=== PATIENT | male | born 1955 | race Two or more races ===

== ENCOUNTER 2017-12-02 08:21 | Emergency (ER) | payer BC ==
[2017-12-02 08:30] VITALS: BP 144/86
[2017-12-02] MEDS ORDERED: Fluorescein Sod TOPICAL 0.6* 0.6 MG TEST OPHTHALMIC ONE (08:35)
[2017-12-02] MEDS ORDERED: BSS OPTH.SOL* BTL ONE (08:35)
[2017-12-02] MEDS ORDERED: Tetracaine 0.5% OPTH.SOL 4 ML* 1 DROP BTL ONE (08:35)
[2017-12-02] MEDS ORDERED: Ciprofloxacin 0.3% OPTH.SOL* 2.5 ML BTL RIGHT EYE ONE (08:45)
[2017-12-02] MEDS ORDERED: Ibuprofen TAB* 400 MG PO ONE (08:46)
--- NOTE | 2017-12-02 13:39 | UC ---
Vamshi Crouch Thomas, scribed for Shubham Thompson MD on 12/02/17 at 0841 . Eye Complaint HPI - HPI Summary HPI Summary: The patient is a 62 year old male complaining of right eye pain that began this morning when he woke up. He thinks that he scratched his eye last night. The pain is rated 4/10. He does note increased lacrimation. He denies decreased vision. There are not any other complaints. - History of Current Complaint Chief Complaint: UCEye Stated Complaint: EYE COMPLAINT Time Seen by Provider: 12/02/17 08:25 Hx Obtained From: Patient Onset/Duration: Lasting Hours, Still Present Timing: Constant Severity Currently: Severe Pain Intensity: 8 Pain Scale Used: 0-10 Numeric Alleviating Factor(s): Nothing Associated Signs And Symptoms: Negative: Vision Impairment Right, Vision Impairment Left - Allergies/Home Medications Allergies/Adverse Reactions: Allergies Allergy/AdvReac Type Severity Reaction Status Date / Time Sulfa (Sulfonamide Allergy See Comment Verified 12/02/17 08:31 Antibiotics) Home Medications: Home Medications Amlodipine Besylate [Norvasc 5 mg tab] 5 mg PO DAILY 12/02/17 [History Confirmed 12/02/17] Lisinopril/HCTZ 20/12.5(NF) [Zestoretic 20/12.5(NF)] 1 tab PO DAILY 12/02/17 [ History Confirmed 12/02/17] Omeprazole 20 mg PO 12/02/17 [History] Rosuvastatin Calcium 20 mg PO 12/02/17 [History] PMH/Surg Hx/FS Hx/Imm Hx Previously Healthy: No - HTN, HLD; NEGATIVE: blindness - Surgical History Surgical History: None - Family History Known Family History: Positive: Other - Per EMR, patient denies a relevant FHx - Social History Alcohol Use: Daily Substance Use Type: None Smoking Status (MU): Never Smoked Tobacco Review of Systems Constitutional: Negative - fever Eyes: Other - Right eye pain, increased lacrimation Is Patient Immunocompromised?: No All Other Systems Reviewed And Are Negative: Yes Physical Exam - Summary Physical Exam Summary: VITAL SIGNS: Reviewed. GENERAL: Patient is a well-developed and nourished male who is lying comfortable in the stretcher. Patient is not in any acute respiratory distress. HEAD AND FACE: Normocephalic EYES: PERRLA, EOMI x 2. When I examined his eye, there is not a foreign body. I did a fluorescein test, and there is positive reuptake at 10 o'clock. EARS: Hearing grossly intact. MOUTH: Oropharynx within normal limits. NECK: Supple, trachea is midline, no adenopathy, no JVD, no carotid bruit. CHEST: Symmetric, no tenderness at palpation LUNGS: Clear to auscultation bilaterally. No wheezing or crackles. CVS: Regular rate and rhythm, S1 and S2 present, no murmurs or gallops appreciated. ABDOMEN: Soft, non-tender. Bowel sounds are normal. No abdominal abnormal pulsations. EXTREMITIES: Full ROM in all major joints, no edema, no cyanosis or clubbing. NEURO: Alert and oriented x 3. No acute neurological deficits. Speech is normal and follows commands. SKIN: Dry and warm Triage Information Reviewed: Yes Vital Signs: Initial Vital Signs Temp 98.8 F 12/02/17 08:27 Pulse 88 12/02/17 08:27 Resp 18 12/02/17 08:27 BP 144/86 12/02/17 08:27 Pulse Ox 99 12/02/17 08:27 Vital Signs Reviewed: Yes Eye Complaint Course/Dx - Course Course Of Treatment: The patient is a 62 year old male complaining of right eye pain that began this morning when he woke up. He thinks that he scratched his eye last night. He does note increased lacrimation. He denies decreased vision. There are not any other complaints. When I examined his eye, there is not a foreign body. I did a fluorescein test, and there is positive reuptake at 10 o' clock. He will be placed on antibiotics and will follow up with ophthalmology in two days. The patient was found to have increased BP in UC. The patient will follow up with PCP for better control of BP. I discussed all the findings with the patient. Patient was instructed to return to the urgent care or go to ER immediately if any of the symptoms return or worsen. Plan of care was discussed with the patient, and patient understands and agrees. All questions were answered to patient satisfaction. There were no further complaints or concerns. - Differential Dx/Diagnosis Provider Diagnoses: Corneal abrasion Discharge - Sign-Out/Discharge Documenting (check all that apply): Discharge - Discharge Plan Condition: Stable Disposition: HOME Patient Education Materials: Corneal Abrasion (ED) Referrals: Du Callejas MD [Medical Doctor] - 2 Days Additional Instructions: FOLLOW UP DR. CALLEJAS, OPHTHALMOLOGY, IN 2-3 DAYS. FOLLOW UP WITH YOUR PRIMARY CARE PROVIDER WITHIN ONE WEEK FOR HIGH BLOOD PRESSURE NOTED TODAY. RETURN TO URGENT CARE OR THE EMERGENCY DEPARTMENT FOR ANY WORSENING OR NEW SYMPTOMS. The documentation as recorded by the Vamshi rhodes Thomas accurately reflects the service I personally performed and the decisions made by , Shubham Thompson MD.
== END 2017-12-02 08:56 | disposition home or self-care (01) ==
LOC: UCEAST 08:21
DX: S05.01XA Injury of conjunctiva and corneal abrasion without foreign body, right eye, initial encounter (principal); X58.XXXA Exposure to other specified factors, initial encounter; Y93.9 Activity, unspecified; Y92.9 Unspecified place or not applicable; Z88.2 Allergy status to sulfonamides
CPT/HCPCS: 99212; A9270-GY; G0463

== ENCOUNTER 2018-11-18 18:33 | Emergency (ER) | payer BC ==
[2018-11-18 18:48] VITALS: BP 112/67
[2018-11-18] MEDS ORDERED: Ondansetron ODT TAB* 4 MG PO ONE ×2 (19:13→19:14)
--- NOTE | 2018-11-18 19:15 | UC ---
Throat Pain/Nasal [place] HPI - HPI Summary HPI Summary: Awoke this morning with swelling to the left of the mouth. Swelling proceeded to the upper lip. No problems with tongue or throat swelling or SOB. Has had fever to 102 with nausea and diarrhea today. - History of Current Complaint Chief Complaint: UCGeneralIllness Stated Complaint: LIP COMPLAINT,FEVER Hx Obtained From: Patient Onset/Duration: Sudden Onset, Lasting Hours - 12, Still Present Severity: Mild Pain Intensity: 0 Cough: None Associated Signs & Symptoms: Positive: Fever, Other - swelling of the upper lip. Negative: Dysphagia, Drooling, Nasal Discharge, Vomiting - but nausea with diarrhea, Rash - Allergies/Home Medications Allergies/Adverse Reactions: Allergies Allergy/AdvReac Type Severity Reaction Status Date / Time Sulfa (Sulfonamide Allergy See Comment Verified 11/18/18 18:48 Antibiotics) Home Medications: Home Medications diphenhydrAMINE HCl [Benadryl Allergy 25 MG CAP] 50 mg PO Q8HR 11/18/18 [ History Confirmed 11/18/18] PMH/Surg Hx/FS Hx/Imm Hx Cardiovascular History: Hypertension - Surgical History Surgical History: None Surgery Procedure, Year, and Place: 2018 cervical surgery - Family History Known Family History: Positive: Cardiac Disease, Hypertension, Diabetes, Other - Per EMR, patient denies a relevant FHx - Social History Occupation: Retired Lives: With Family Alcohol Use: Weekly Substance Use Type: None Smoking Status (MU): Former Smoker Have You Smoked in the Last Year: No When Did the Patient Quit Smoking/Using Tobacco: 25 years ago Review of Systems All Other Systems Reviewed And Are Negative: Yes Constitutional: Positive: Fever ENT: Positive: Other - swelling upper lip Gastrointestinal: Positive: Diarrhea, Nausea Is Patient Immunocompromised?: No Physical Exam Triage Information Reviewed: Yes Appearance: No Pain Distress, Well-Nourished, Ill-Appearing Vital Signs: Initial Vital Signs Temp 99.4 F 11/18/18 18:41 Pulse 75 11/18/18 18:41 Resp 16 11/18/18 18:41 BP 112/67 11/18/18 18:41 Pulse Ox 98 11/18/18 18:41 Vital Signs Reviewed: Yes Eyes: Positive: Conjunctiva Clear ENT: Positive: Pharynx normal, TMs normal, Other - upper lip with angioedema Neck exam: Normal Respiratory Exam: Normal Cardiovascular Exam: Normal Abdominal Exam: Normal Bowel Sounds: Positive: Present Musculoskeletal Exam: Normal Neurological Exam: Normal Psychological Exam: Normal Skin Exam: Normal Throat Pain/Nasal Course/Dx - Differential Dx/Diagnosis Differential Diagnosis/HQI/PQRI: Laryngitis, Pharyngitis, URI Provider Diagnosis: Angioedema of lips, Enteritis Discharge - Sign-Out/Discharge Documenting (check all that apply): Patient Departure All imaging exams completed and their final reports reviewed: No Studies - Discharge Plan Condition: Stable Disposition: HOME Prescriptions: Ondansetron ODT TAB* [Zofran 4 MG Odt TAB*] 4 mg PO Q6H PRN #30 tab.odt PRN Reason: Nausea/Vomiting Patient Education Materials: Gastroenteritis (ED), Angioedema (ED), Ondansetron (By mouth) Referrals: Bishop Morales MD [Primary Care Provider] - 3 Days (Call about the swelling and possibly restarting the lisinopril) Additional Instructions: IF YOU GET SWELLING OF THE TONGUE OR THROAT, CALL 911 TO GO TO THE EMERGENCY ROOM. Stop the lisinopril/ hydrochlorothiazide to see if that might be causing the swelling. Please follow up with your primary care physician to determine the course of possibly restarting the medication. - Billing Disposition and Condition Condition: STABLE Disposition: Home
== END 2018-11-18 20:11 | disposition home or self-care (01) ==
LOC: UCEAST 18:33
DX: T78.3XXA Angioneurotic edema, initial encounter (principal); K52.9 Noninfective gastroenteritis and colitis, unspecified; I10 Essential (primary) hypertension; Z88.2 Allergy status to sulfonamides; Z87.891 Personal history of nicotine dependence; X58.XXXA Exposure to other specified factors, initial encounter; Y92.9 Unspecified place or not applicable
CPT/HCPCS: 99212; A9270-GY; G0463